=== PATIENT | male | born 2000 | race Caucasian/White ===

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

== ENCOUNTER 2024-03-28 02:49 | Emergency (ER) | payer OTHER, SELFPAY ==
[~2024-03-28] VITALS: Ht 180.3 cm; Wt 130.1 kg
[2024-03-28 06:04] VITALS: BP 136/76; TEMP 98; O2SAT 98
== END 2024-03-28 07:16 | disposition left against medical advice (07) ==
LOC: M ED 02:49
DX: Z53.21 Procedure and treatment not carried out due to patient leaving prior to being seen by health care provider (principal)

== ENCOUNTER 2024-06-08 08:46 | Day surgery (SDC) | payer OTHER ==
[~2024-06-08] VITALS: Ht 180.3 cm; Wt 125.2 kg
[2024-06-08] MEDS ORDERED: GLYCOPYRROLATE INJ 0.2 MG/ML 2 ML VIAL As Ordered ONE (09:18)
[2024-06-08] MEDS ORDERED: LIDOCAINE 2% 100MG/5ML SDV (FOR ANES.) As Ordered ONE (09:18)
[2024-06-08] MEDS ORDERED: propofoL 500 MG/50 ML VIAL As Ordered ONE (09:18)
[2024-06-08] MEDS ORDERED: fentaNYL 100 MCG/2 ML INJECTION As Ordered ONE (09:29)
[2024-06-08 09:56] VITALS: TEMP 98.7
[2024-06-08 10:20] VITALS: BP 130/86; O2SAT 97
== END 2024-06-08 10:28 | disposition home or self-care (01) ==
LOC: M OPP 08:46
PROVIDERS: ATTEND Surgery
DX: K31.89 Other diseases of stomach and duodenum (principal); R19.4 Change in bowel habit; R19.5 Other fecal abnormalities; R10.13 Epigastric pain; R12 Heartburn
CPT/HCPCS: 43239; 45378; 88305; J1596; J3010